=== PATIENT | male | born 1980 | race Caucasian/White ===

== ENCOUNTER 2016-09-13 08:57 | Inpatient (IN) | payer OTHER ==
[~2016-09-13] VITALS: Ht 167.6 cm; Wt 53.5 kg
[2016-09-13] MEDS ORDERED: CLONIDINE HCL 0.1 MG TABLET PO PRN (10:30)
[2016-09-13] MEDS ORDERED: IBUPROFEN 400 MG TABLET PO PRN (10:30)
[2016-09-13] MEDS ORDERED: diphenhydrAMINE 50 MG CAPSULE PO PRN (10:30)
[2016-09-13] MEDS ORDERED: DICYCLOMINE HCL 20 MG TABLET PO PRN (10:30)
[2016-09-13] MEDS ORDERED: ONDANSETRON ODT 4 MG TAB.RAPDIS SL PRN (10:30)
[2016-09-13] MEDS ORDERED: MAGNESIUM HYDROXIDE 30 ML LIQUID UDC PO PRN (10:30)
[2016-09-13] MEDS ORDERED: LOPERAMIDE HCL 2 MG CAPSULE PO PRN ×2 (10:30)
[2016-09-13] MEDS ORDERED: DIAZEPAM 5 MG TABLET PO PRN (10:30)
[2016-09-13] MEDS ORDERED: MAG HYDROX/AL HYDROX/SIMETH 30 ML LIQUID UDC PO PRN (10:30)
[2016-09-13] MEDS ORDERED: LORAZEPAM 2 MG/1 ML VIAL IM PRN (10:30)
[2016-09-13] MEDS ORDERED: DIAZEPAM 10 MG TABLET PO PRN ×2 (10:30)
[2016-09-13] MEDS ORDERED: ONDANSETRON 4 MG/2 ML VIAL IM PRN (10:30)
[2016-09-13] MEDS ORDERED: MIRALAX 17 GM POWD.PACK PO PRN (10:30)
[2016-09-13] MEDS ORDERED: ACETAMINOPHEN 325 MG TABLET PO PRN (10:30)
[2016-09-13 10:45] VITALS: BP 103/66
[2016-09-13 11:11] LABS: BASOPHILS # (AUTO) 0.1 K/uL (0.0-8.0); BASOPHILS % (AUTO) 0.7 % (0.0-2.0); EOSINOPHILS # (AUTO) 0.1 K/uL (0.0-0.7); EOSINOPHILS % (AUTO) 0.9 % (0.0-7.0); HEMATOCRIT 49.5 % (40-50); HEMOGLOBIN 16.7 G/DL (14.0-18.0); LYMPHOCYTES # (AUTO) 2.4 K/UL (0.8-4.8); LYMPHOCYTES % (AUTO) 26.6 % (20.5-51.5); MEAN CORPUSCULAR HEMOGLOBIN 30.2 UUG (27.0-31.0); MEAN CORPUSCULAR HGB CONC 34 g/dL (32.0-37.0); MEAN CORPUSCULAR VOLUME 89.5 FL (82.0-92.0); MONOCYTES # (AUTO) 0.9 K/UL (0.1-1.30); MONOCYTES % (AUTO) 10.3 % (0.0-11.0); NEUTROPHILS # (AUTO) 5.5 K/UL (1.8-8.9); NEUTROPHILS % (AUTO) 61.5 % (38.5-71.5); PLATELET COUNT (AUTO) 394 K/UL (150-450); RED BLOOD CELL COUNT(AUTO) 5.53 MIL/UL (4.7-6.1)
[2016-09-13 11:30] LABS: ALANINE AMINOTRANSFERASE 30 U/L (16-63); ALKALINE PHOSPHATASE 93 U/L (50-136); ASPARTATE AMINOTRANSFERASE 22 U/L (15-37); BILIRUBIN,TOTAL 1.2 mg/dL (0.2-1.0); CARBON DIOXIDE 28 mmol/L (21-32); CHLORIDE 100 mmol/L (98-107); CREATININE 0.9 mg/dL (0.6-1.3); GLUCOSE 66 mg/dL (74-106); MAGNESIUM 2.3 mg/dL (1.8-2.4); TOTAL PROTEIN, SERUM 8.5 g/dL (6.4-8.2); UREA NITROGEN, BLOOD 16 mg/dL (7-18)
[2016-09-13 11:35] LABS: ETHANOL < 3 MG/DL (0-0)
[2016-09-13 11:40] LABS: THYROID STIMULATING HORMONE 1.969 mIU/mL (0.358-3.740)
[2016-09-13 13:09] VITALS: BP 126/90
[2016-09-13] MEDS ORDERED: POTASSIUM CHLORIDE 20 MEQ TAB.PRT.SR PO ONE (17:30)
[2016-09-13 17:42] VITALS: BP 111/67
[2016-09-13 20:00] VITALS: BP 113/76
[2016-09-13 23:10] LABS: *AMPHETAMINE, URINE POSITIVE (NEGATIVE); *BARBITURATE, URINE NEGATIVE (NEGATIVE); *CANNABINOID, URINE NEGATIVE (NEGATIVE); *COCCAINE, URINE NEGATIVE (NEGATIVE); *OPIATE, URINE NEGATIVE (NEGATIVE); *PHENCYCLIDINE SCREEN,URINE NEGATIVE (NEGATIVE)
[2016-09-14] VITALS: BP 119/80
[2016-09-14 04:00] VITALS: BP 121/71
[2016-09-14 08:08] LABS: HEPATITIS B SURFACE AG Negative (Negative)
[2016-09-14 08:43] VITALS: BP 90/61
[2016-09-14] MEDS: MULTIVITAMINS,THERAPEUTIC TABLET PO SCH (08:57)
[2016-09-14] MEDS ORDERED: TUBERCULIN,PURIF.PROT.DERIV. 5 TU/0.1 ML TEST ID ONE (09:00)
[2016-09-14 12:57] VITALS: BP 108/60
[2016-09-14 17:20] VITALS: BP 98/62
[2016-09-14 20:00] VITALS: BP 113/54
[2016-09-14 22:32] LABS: *AMPHETAMINE, URINE POSITIVE (NEGATIVE); *BARBITURATE, URINE NEGATIVE (NEGATIVE); *CANNABINOID, URINE NEGATIVE (NEGATIVE); *COCCAINE, URINE NEGATIVE (NEGATIVE); *OPIATE, URINE NEGATIVE (NEGATIVE); *PHENCYCLIDINE SCREEN,URINE NEGATIVE (NEGATIVE)
[2016-09-15 08:00] VITALS: BP 110/76
[2016-09-15] MEDS: MULTIVITAMINS,THERAPEUTIC TABLET PO SCH (08:19)
== END 2016-09-15 09:36 | disposition home or self-care (01) | DRG 895 ==
LOC: SRC 09:53
PROVIDERS: ADMIT Internal Medicine; ATTEND Internal Medicine
PROC: HZ41ZZZ Group Counseling for Substance Abuse Treatment, Behavioral (ICD-10-PCS; principal; 2016-09-13)
PROC: HZ2ZZZZ Detoxification Services for Substance Abuse Treatment (ICD-10-PCS; principal; 2016-09-13)
PROC: HZ31ZZZ Individual Counseling for Substance Abuse Treatment, Behavioral (ICD-10-PCS; principal; 2016-09-13)
DX: F15.23 Other stimulant dependence with withdrawal (principal); F32.9 Major depressive disorder, single episode, unspecified; F10.10 Alcohol abuse, uncomplicated; Y90.9 Presence of alcohol in blood, level not specified; K27.7 Chronic peptic ulcer, site unspecified, without hemorrhage or perforation; E87.6 Hypokalemia
CPT/HCPCS: 36415; 70030-TC; 71010; 80307; 80324; 83735; 84443; 85025; 86592; 86705; 86803; 87340; 87806; A4663; G0480; Q0163